=== PATIENT | female | born 1985 | race Two or more races ===

== ENCOUNTER 2025-03-10 16:00 | Outpatient (RCR) | payer MEDICAID, SELFPAY ==
--- NOTE | 2025-02-24 15:08 | PTNOTE_ITS ---
PT OP Initial Eval Patient Information Outpatient Physical Therapy Treatment Date: 02/24/25 Visit Reasons: Pain in RT/Left knee Medical Diagnosis: M25.562 M25.561 Treatment Dx #1: B knee pain Start of Care: 02/24/25 Date of Onset: August 2024 Smoking Status Smoking Status: Never smoker Initial Assessment Subjective: Pt is 39 yr old wallisian speaking female who reports B knee pain L>R since August. Increased pain with stairs, ladders and prolonged walking >1.5 hrs. 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 PMH: x2 Imaging: Xray reports in chart of B knees: negative Pt goal: less B knee pain to work Objective: B knee ArOM: Flexion: R: full, L: 120 deg with pain at end-range Extension: full B SLR: 45 deg B Maxime's: positive Patella compression: positive B Glute medius strength: R: 4/5 L: 3+/5 Quads: 4-/5 limited by patella compression strength HS: 4/5 Assessment: Pt presents with positive patella compression L>R and glute medius weakness on L consistent with patellofemoral pain. Pt requires skilled therapy to meet goals and has fair rehab potential. She may benefit from further diagnostic imaging if she doesn't improve with therapy. [employer] Goals 1. Ind with HEP 2. Improved glute medius strength on L to 4/5 3. Improved quad strength B to 4+/5 4. Pt will ascend 1 flight of stairs with <=3/10 B knee pain Treatment Plan 1. Manual therapy ? 2. Therex ? 3. Modalities as indicated, moist heat, ice, estim Frequency and Duration: 2x a week for 4 Rx visits plus the evaluation Certification Dates: 02/24/25 to 05/25/25 Procedure Charges OP PT Eval Mod Complex 30 minutes: Yes
--- NOTE | 2025-03-10 16:47 | PT.ODAYNRPT ---
PT Outpatient Daily Note OP Daily Note Outpatient Physical Therapy Treatment Date: 03/10/25 Visit Reasons: Pain in RT/Left knee Subjective: Pt c/o B knee pain, works some days what she can tolerate but works in the [employer] picking [employer]. Objective: Please see flow sheet for ther ex list. Assessment: Pt demonstrates poor activity tolerance due to pain response. Plan: Assess response to treatment. Length of Time (minutes) of Treatment: 30 Minutes Procedure Charges Therapeutic Exercise 30 minutes: Yes
== END 2025-03-23 23:59 | disposition home or self-care (01) ==
LOC: CPTX 16:00
PROVIDERS: PCP Physician Assistant; Referring Provider Physician Assistant; Visit Provider Physician Assistant
DX: M25.562 Pain in left knee (principal); M25.561 Pain in right knee; R53.1 Weakness
CPT/HCPCS: 97110; 97162